=== PATIENT | female | born 1980 | race Caucasian/White ===

== ENCOUNTER 2018-08-14 21:56 | Inpatient (IN) | payer BC ==
[~2018-08-14] VITALS: Ht 182.9 cm; Wt 99.8 kg
[2018-08-14 21:58] VITALS: BP 106/79
[2018-08-14 22:39] LABS: ABSOLUTE NEUTROPHILS 8.3 thou/uL (1.4-8.2); BASOPHILS 0.3 % (0.0-2.0); HEMATOCRIT 38.7 % (37.0-47.0); HEMOGLOBIN 12.8 gm/dL (12.0-15.0); LYMPHOCYTES 11.8 % (24.0-44.0); MCH 27.6 pg (26.0-34.0); MCHC 33.1 g/dL (28.0-37.0); MCV 83.3 fL (80.0-100.0); MONOCYTES 1.8 % (1.0-8.0); PLATELET COUNT 342 thou/uL (150-400); POLYS 86.1 % (36.0-66.0); RBC 4.65 mil/uL (4.20-5.00); RDW 16.9 % (10.5-14.5); WBC 9.6 thou/uL (4.0-11.0)
[2018-08-14 22:43] LABS: CALCIUM 9.3 mg/dL (8.5-10.1); CREATININE 0.7 mg/dL (0.6-1.0); POTASSIUM 3.6 mmol/L (3.5-5.1)
[2018-08-14 22:49] LABS: ALBUMIN 4.4 g/dL (3.4-5.0); TOTAL BILIRUBIN 0.4 mg/dL (<0.1-1.0); TOTAL PROTEIN 8.7 g/dL (6.4-8.2)
[2018-08-15 01:05] LABS: URINE BILIRUBIN NEGATIVE (Negative); URINE BLOOD 1+ (Negative); URINE CLARITY CLEAR; URINE COLOR YELLOW; URINE GLUCOSE-RANDOM* NEGATIVE (Negative); URINE KETONES 3+ (Negative); URINE LEUKOCYTES-REFLEX NEGATIVE (Negative); URINE NITRITE-REFLEX NEGATIVE (Negative); URINE PROTEIN (DIPSTICK) NEGATIVE (Negative); URINE UROBILINOGEN 0.2 E.U./dl (0.2-1.0)
[2018-08-15 01:11] LABS: SQUAMOUS 4-10 Moderate /LPF (0-3); URINE WBC-REFLEX 0-5 Rare /HPF (0-5)
[2018-08-15 01:12] LABS: BACTERIA-REFLEX 1-9 Few /HPF (None Seen); CASTS None Seen /LPF (None Seen); CRYSTALS None Seen /LPF (None Seen); MUCUS 0-3 Light strn/LPF (None Seen); URINE RBC 3-10 Few /HPF (0-2)
[2018-08-15] MEDS ORDERED: PROMS25 WY RECTAL (01:29)
[2018-08-15] MEDS ORDERED: PHENERGAN 25 MG25 M1 PO (01:29)
[2018-08-15] MEDS ORDERED: ZOFRAN ODT4 MG PO (01:29)
[2018-08-15 02:25] VITALS: BP 119/75
[2018-08-15 02:54] VITALS: BP 119/75
[2018-08-15] MEDS ORDERED: WELLBUTRIN SR150 MG PO (05:10)
[2018-08-15] MEDS ORDERED: CLONAZEPAM 1 MG1 M1 PO (05:11)
[2018-08-15] MEDS ORDERED: ZONISAMIDE 100100 M1 PO (05:12)
[2018-08-15] MEDS ORDERED: OXYCODONE HCL20 M1 PO (05:20)
[2018-08-15] MEDS ORDERED: CELEXA20 MG PO (05:23)
[2018-08-15] MEDS ORDERED: RESTORIL7.5 MG PO (05:23)
[2018-08-15] MEDS ORDERED: LIDODERM1 EACH TRANSDERM (05:24)
[2018-08-15] MEDS ORDERED: NEURONTIN 300300 M1 PO (05:27)
[2018-08-15] MEDS ORDERED: MOVANTIK25 MG PO (05:29)
[2018-08-15 05:47] LABS: CALCIUM 8.4 mg/dL (8.5-10.1); CREATININE 0.7 mg/dL (0.6-1.0); POTASSIUM 3.4 mmol/L (3.5-5.1)
--- NOTE | 2018-08-15 07:36 | NUR ---
PT ARRIVED TO UNIT APPROX 0300, ABLE TO WALK FROM W/C TO BED. ADMISSION AND ASSESSMENT COMPLETED, CONSENTS SIGNED. PT C/O MID STERNAL CHEST PAIN THAT RADIATES OUTWARD AND INTO THE BACK, IS WORSE AFTER VOMITING, ALSO HAS SOME SOB WITH THE PAIN AND NAUSEA. REPORTS HER PAIN IS TOLERABLE AT A 7/10, BUT HAS BEEN UP TO A 9/10 TONIGHT. REPORTS THE NAUSEA IS WORSE THAN THE PAIN, AND CONTINUES TO DRY HEAVE; HAVE GIVEN ZOFRAN AND COMPAZINE OVERNIGHT. PT'S SPOUSE AND SERVICE DOG ARE IN THE ROOM WITH HER; PAPERS ON THE SERVICE DOG ARE LOCATED ON THE BACK OF THE CHART AND A SIGN IS POSTED ON THE DOOR OF THE ROOM. IV FLUIDS INFUSING OVERNIGHT. NO OTHER CONCERNS, SHIFT REPORT GIVEN AT 0700.
--- NOTE | 2018-08-15 08:08 | EKG ---
[address] [address] ELECTROCARDIOGRAM REPORT Name: FARAZJOSHUA PADILLA DASH Room #: 423-1 ADM IN M.R.#: [id number] ������������������ Admission: 08/15/18 ������������������ Attend Phys: Suresh Rousseau MD Discharge: ������������������ Date of : 80 Report #: [id number] ����������������������������������������������������������������� [id number] THIS REPORT FOR: //name// [facility] ED Test Date: 2018-08-14 Test Time: 21:57:21 Pat Name: JOSHUA LANGFORD Department: Room: [facility] Gender: F Help Desk Intern: As : 1980 Requested By: Jayy Wiggins Order Number: [id number] MD: Feroz Matias Measurements Intervals Mentor Rate: 71 P: 45 IL: 175 QRS: 43 QRSD: 102 T: 67 QT: 395 QTc: 430 Interpretive Statements Sinus arrhythmia Borderline T wave abnormalities Baseline wander in lead(s) III No previous ECG available for comparison Electronically Signed On 08-15-2018 8:08:16 CDT by Feroz Matias [email or web address] ��������������������������������������������� <ELECTRONICALLY SIGNED> ���������������������������������������� By: Feroz Matias MD ��������������������������������������������� 08/15/1808 56 56 Feroz Matias MD /JESS
[2018-08-15 08:34] VITALS: BP 124/65
--- NOTE | 2018-08-15 08:57 | NUR ---
ASSESMENT COMPLETED. VSS. A/O. C/O PAIN AND NAUSEA MANAGED BY MEDS ORDERED. NO NOTED SOA. UP AD ELANA. PT RESTING IN BED AT THIS TIME. FAMILY AT BEDSIDE. WILL CONT. TO MONITOR.
--- NOTE | 2018-08-15 09:37 | NUR ---
Pt newly admitted this am for intractable n/v. High nutrition risk trigger for unintentional wt loss 14-23 lb, decreased oral intake with constipation. On IVF, GI consult pending. NPO status. Will follow up in few days for timely diet advance, tolerance.
[2018-08-15 13:54] VITALS: BP 102/66
--- NOTE | 2018-08-15 16:14 | NUR ---
INITIAL ASSESSMENT: Pt evaluated for d/c planning needs. Reviewed chart and spoke with nurse and pt. Pt is alert and oriented. Pt lives at home with and was independent with ADL's prior to admission to the hospital. Pt has cane at home and has not had home health in the past. Pt plans on returning home on d/c from hospital. Will remain available to assist as needed.
[2018-08-15 16:29] VITALS: BP 129/66
[2018-08-15 19:12] VITALS: BP 117/65
[2018-08-16 04:11] VITALS: BP 135/81
--- NOTE | 2018-08-16 05:59 | NUR ---
ASSUMED CARE AT 1900, ASSESSMENT COMPLETED. PT MILDLY ANXIOUS WITH MODERATE NAUSEA BUT DENIES NEEDING NAUSEA MEDS OVERNIGHT. PRIMARY COMPLAINT IS PAIN IN HER RIGHT FOOT, STERNAL CHEST, AND IN HER RIGHT ARM; GAVE SCHEDULED OXY AND PRN CLONAZAPAM AND ATIVAN OVERNIGHT. DISCUSSED PLANS FOR PIPPIDA AND ABD US TODAY, THAT SHE WOULD BE NPO AFTER MIDNIGHT AND UNABLE TO TAKE ANY NARCOTIC MEDS--PT STATES SHE UNDERSTANDS. PT TOOK SHOWER AT HS. REPORTS SLEEPING POORLY, WAS FRUSTRATED AT BEING WOKEN UP FOR LABS THIS AM; AFTERWORD TALKED WITH PT AND AGREED TO LABS BE HELD UNTIL AROUND 0800. ALSO PLACED SIGN ON DOOR ASKING STAFF TO CHECK IN WITH THE NURSE BEFORE ENTERING THE ROOM IN CASE PT IS TRYING TO REST. PT'S AND SERVICE DOG PRESENT IN ROOM. NO OTHER CONCERNS, WILL CONTINUE TO MONITOR.
[2018-08-16 07:30] VITALS: BP 127/86
--- NOTE | 2018-08-16 08:46 | NUR ---
ASSESMENT COMPLETED. VSS. A/O/VERY ANXIOUS. C/O PAIN. NO NOTED NV. NO NOTED FELICITY. UP AD ELANA. AND DOG AT BEDSIDE. WANTING TO GET TEST DONE THIS AM. PT DOWN IN NUC MED AT THIS TIME.
--- NOTE | 2018-08-16 12:33 | NUR ---
RECEIVED BACK FROM [facility] APPROX 1045. TEARFUL. PAIN MEDS GIVEN ORDERED. HEATING PAD ORDERED. NOTED PT WATCHING TV ABLE TO CONVERSE AND LAUGH BUT STILL EXPRESSES SIGNIFICANT PAIN. NEW IV STARTED IN LEFT FOREARM RIGHT AC IV IS UNCOMFORTABLE. PT REQUESTING TO NAP FOR ATLEAST A COUPLE HOURS. WILL CONT. TO MONITOR.
[2018-08-16 16:00] VITALS: BP 157/69
--- NOTE | 2018-08-16 17:07 | PATH ---
[facility] [place] [address] [place] [address] PATHOLOGY RPT PROCEDURE Name: PEGGY LANGFORD Room #: 418-P ADM IN M.R.#: [id number] ������������������ Admission: 08/15/18 ������������������ Date of : 80 Discharge: Report #: [id number] Path Case #: [id number] L[facility] Accession Number: [id number] . 01 Material submitted: . PART A: BX OF ANTRUM PART B: ESOPHAGEAL BX . 01 Clinical history: . N/V A. R/O gastritis B. R/O eosinophilic esophagitis . 02 Diagnosis: A. Gastric mucosa, antrum, endoscopic biopsy: - Mild chronic gastritis with features of reactive gastropathy. - Negative for intestinal metaplasia or atrophy. - Negative for Helicobacter pylori (properly controlled immunohistochemical stain performed). . B. Gastroesophageal mucosa, esophagus rule out eosinophilic esophagitis, endoscopic biopsy: - Squamous mucosa showing mild active esophagitis with approximately 2 to 3 eosinophils/high power field. - Gastric cardia-type mucosa with acute inflammation. - Negative for intestinal metaplasia or dysplasia. - Negative for eosinophilic esophagitis. LBQ/08/16/2018 . 02 Comment: A GMS fungal special stain is ordered on block B and the results of this will be reported in an addendum to follow. (IUV/db; 08/16/2018) . 02 Electronically signed: . Nisha Dick MD, Pathologist NPI- [id number] . 01 Gross description: . A. The specimen is received in formalin, labeled "Peggy Langford, biopsy of antrum to R/O gastritis". Received is a segment of pale dejesus soft tissue measuring 0.8 cm in maximum dimensions. The specimen is submitted entirely in cassette A1. . B. The specimen is received in formalin, labeled "Peggy Langford, esophageal biopsy to R/O EOE". Received is a segment of pale dejesus soft tissue measuring 0.4 cm in maximum dimensions. [place] [address] PATHOLOGY RPT PROCEDURE Name: PEGGY LANGFORD Room #: 418-P [facility] IN M.R.#: [id number] ������������������ Admission: 08/15/18 ������������������ Date of : 80 Discharge: Report #: [id number] Path Case #: [id number] entirely in cassette B1. (CAA; 08/15/2018) QAC/QAC . 02 Pathologist provided ICD-10: K29.50, K20.0 . 02 CPT . 666555, 049032, G48175 Specimen Comment: A courtesy copy of this report has been sent to Specimen Comment: [phone], . Specimen Comment: Report sent to / DR TONEY Performed at: [address] [facility], [place], [place] [id number] MD Rahul Chappell MD Phone: [phone] Performed at: [address] [facility] [id number] MD Nisha Dick MD Phone: [phone]
[2018-08-16 17:39] LABS: HEMATOCRIT 30.1 % (37.0-47.0); MCH 28.2 pg (26.0-34.0); MCHC 33.2 g/dL (28.0-37.0); MCV 84.9 fL (80.0-100.0); RBC 3.54 mil/uL (4.20-5.00); RDW 16.7 % (10.5-14.5); WBC 6.2 thou/uL (4.0-11.0)
[2018-08-16 17:43] LABS: CREATININE 0.6 mg/dL (0.6-1.0); POTASSIUM 2.7 mmol/L (3.5-5.1)
[2018-08-16 20:01] VITALS: BP 149/78
--- NOTE | 2018-08-17 03:20 | NUR ---
ASSESSMENT COMPLETED. PT IS UP AD ELANA. STILL C/O LUQ. NO NAUSEA THIS SHIFT. CHRONIC R FOOT PAIN, LIDOCAINE APPLIED WITH RELIEF. AFEBRILE. PROBLEM SLEEPING TONIGHT. GIVEN SLEEP AIDE WITH POOR RESULTS, BENADRYL JUST GIVEN PER PT REQUEST-HOPEFULLY IT WILL HELP.SERVICE DOG AND SPOUSE BY BEDSIDE. SOME ELEMENT OF ANXIETY BUT SHE HAS BEEN SMILING AND VERY COOPERATIVE.
[2018-08-17 05:48] VITALS: BP 121/67
[2018-08-17 07:46] VITALS: BP 136/76
[2018-08-17 18:31] VITALS: BP 120/85
[2018-08-17 21:00] VITALS: BP 148/98
--- NOTE | 2018-08-18 01:34 | NUR ---
ASSUMED PT CARE AT AROUND 1915 HRS.PT FRUSTRATED AND COMPLAINING ABOUT FEELING WORSE. PT WAS C/O THAT MIRALAX GIVEN IN THE DAY MADE HER FEEL WORSE. PT REPORTS EMESIS. ORDERS RECEIVED FOR ONE TIME TORADOL AND COMPAZINE WAS ALSO GIVEN. PT NOT HAPPY ABOUT THE TORADOL ORDER. FELT LIKE IT WAS NOT GOING TO HELP HER. PT C/O ABOUT THE METABOLIC SPECIALIST , THE DAY SHIFT RN, DIETARY ETC. THERAPEUTIC EAR PROVIDED. PT WAS AT ONE TIME PACKED UP AND READY TO LEAVE AMA. THIS NURSE REMINDED HER THAT LEAVING AMA MIGHT INTERFERE WITH INSURANCE PAYING FOR HER CARE-PT DECIDED TO STAY. PT IS EXTREMELY ANXIOUS. ANXIETY AND PAIN MEDS GIVEN PER SCHEDULE. PT IS AFEBRILE. WILL CONTINUE WITH POC TILL EOS.
[2018-08-18 07:31] LABS: HEMATOCRIT 30.4 % (37.0-47.0); MCH 27.7 pg (26.0-34.0); MCHC 32.8 g/dL (28.0-37.0); MCV 84.6 fL (80.0-100.0); RBC 3.59 mil/uL (4.20-5.00); RDW 16.8 % (10.5-14.5); WBC 4.3 thou/uL (4.0-11.0)
[2018-08-18 07:52] LABS: ALBUMIN 3.1 g/dL (3.4-5.0); CALCIUM 7.8 mg/dL (8.5-10.1); CREATININE 0.6 mg/dL (0.6-1.0); TOTAL BILIRUBIN 0.4 mg/dL (<0.1-1.0)
[2018-08-18 07:58] LABS: POTASSIUM 2.8 mmol/L (3.5-5.1)
--- NOTE | 2018-08-18 08:03 | NUR ---
ASSUMED CARE OF PT AT 0700. ASSESSMENT COMPLETED. A&O,X4. HX ANXIETY, ANXIOUS AT TIMES, ANTIANXIETY GIVEN ORDERED. C/O CHRONIC PAIN AND ABD PIAN, PAIN MEDS GIVEN ORDERED. SOME NAUSEA NOTED, MEDS GIVEN ORDERED, NO VOMITING. ROOM AIR, CLEAR LUNG SOUNDS, NO SOA. REGULAR HEART SOUNDS. ACTIVE BOWEL SOUNDS, LBM 3/12. SKIN INTACT. AND THERAPY DOG AT BEDSIDE. POTENTIAL D/C HOME TODAY. WILL CONTINUE TO MONITOR.
[2018-08-18] MEDS ORDERED: PROTONIX40 M1 PO (13:25)
[2018-08-18] MEDS ORDERED: CARAFATE 11 GM/10 M1 PO (13:25)
[2018-08-18] MEDS ORDERED: MIRALAX17 GM PO (13:25)
--- NOTE | 2018-08-18 15:06 | NUR ---
PT EXPRESSES CONCERNS ABOUT HOSPITAL STAY AND NOT READY TO DISCHARGE. PT REQUESTED TO SEE DR. COOMBS AND DR. FIORE. PHYSICIANS NOTIFIED. PHYSICIANS UNABLE TO SEE PT IN PERSON FOR NON-EMERGENT CASES TODAY. BOTH PHYSICIANS STATE SHE IS OKAY TO GO HOME FROM [facility]. PT IS UPSET ABOUT THE SITUATION.
--- NOTE | 2018-08-18 15:52 | NUR ---
HOSPITALIST CHANGED FROM DR. TONEY TO DR. GARDNER. DR. GARDNER TO SEE PATIENT AND SIGNIFICANT OTHER AT BEDSIDE. PATIENT AND S.O. DISAGREED WITH DR. GARDNER'S SECOND OPINION.
--- NOTE | 2018-08-18 16:37 | NUR ---
LAB CALLED CRITICAL POTASSIUM 2.9. FOLLOWING POTASSIUM PROTOCOL ORDER. PHYSICIAN NOTIFIED.
[2018-08-18 16:46] VITALS: BP 148/98
--- NOTE | 2018-08-18 17:58 | NUR ---
DR. GARDNER DISCONTINUED STANDING DISCHARGE ORDERS BY DR. TONEY DUE TO PATIENT'S LOW POTASSIUM AND UNRELIEVED SYMPTOMS OF N/V. NEW IV FLUID ORDERS. WILL CONTINUE POTASSIUM PROTOCOL. NEW NAUSEA MED ORDER, WILL GIVE ORDERED. DR. GARDNER SPOKE BY TELEPHONE TO THE PATIENT. PATIENT WILL BE STAYING THE WEEKEND AND PLAN FOR FURTHER TESTING ON MONDAY.
[2018-08-18 19:30] VITALS: BP 153/116
--- NOTE | 2018-08-19 05:38 | NUR ---
PT AMBULATING IN ROOM INDEPENDENTLY AND IS TOLERATING WELL. OXY IR PROVIDING PAIN RELIEF. COMPAZINE PROVIDING NAUSEA RELIEF. RESTING COMFORTABLY. NO NEEDS VOICED. CALL LIGHT WITHIN REACH. WILL CONTINUE TO PROVIDE FREQUENT OBSERVATION.
[2018-08-19 08:39] VITALS: BP 153/97
--- NOTE | 2018-08-19 09:19 | NUR ---
ASSESMENT COMPLETED. VSS. C/O PAIN AND NAUSEA. MEDS GIVEN ORDERED. SPENT ATLEAST 40 MINUTES DISCUSSING POC WITH PATIENT THIS AM. PT VERY ANXIOUS/TEARFUL. HAD COMPLAINS ABOUT HOSPITAL STAFF. REASSURANCE GIVEN. PT RESTING IN BED AT THIS TIME. AT BEDSIDE. WILL CONT. TO MONITOR.
[2018-08-19 12:22] LABS: MAGNESIUM 2.1 mg/dL (1.8-2.4); POTASSIUM 3.2 mmol/L (3.5-5.1)
--- NOTE | 2018-08-19 12:23 | NUR ---
SUPPOSITORY GIVEN ORDERED. PT VERY ANXIOUS. PT TRYING TO HAVE BM AT THIS TIME. WILL CONT. TO MONITOR.
--- NOTE | 2018-08-19 16:09 | NUR ---
PT ATE SOME PUDDING AND DID OK PER PATIENT REPORT.
--- NOTE | 2018-08-19 16:10 | NUR ---
PT C/O SEVERE PAIN/CRAMPING AFTER ENEMA AND SUPPOSITORY- NO RESULTS. REQUESTED ENEMA AT TIME WHEN NEXT PAIN AND ANXIETY MED DUE.
[2018-08-19 16:45] VITALS: BP 128/75
[2018-08-19 20:41] VITALS: BP 138/80
[2018-08-20 05:34] VITALS: BP 106/66
--- NOTE | 2018-08-20 07:43 | NUR ---
VERY ANXIOUS, GIVEN PRN KLONOPIN, LOTS OF EMOTIONAL SUPPORT. SCHEDULED OXYCODONE Q6HRS, DID REQUIRE X 1 IV TORADOL. INCREASED PAIN TONIGHT REPORTED SINCE HAS INCREASED ABD DISTENTION. NO RESULTS FROM ENEMAS GIVEN. REFUSING IVF, HAS AVERSION TO HAVING IVF INFUSING WITH ANY AMOUNT OF POTASSIUM IN IT. AM POTASSIUM LEVEL BEING DRAWN WHILE WRITING THIS NOTE.
[2018-08-20 08:17] LABS: POTASSIUM 3.5 mmol/L (3.5-5.1)
[2018-08-20 08:32] VITALS: BP 143/92
[2018-08-20 10:08] LABS: HEMATOCRIT 34.1 % (37.0-47.0); HEMOGLOBIN 11.2 gm/dL (12.0-15.0); MCH 28.1 pg (26.0-34.0); MCHC 32.9 g/dL (28.0-37.0); MCV 85.3 fL (80.0-100.0); RBC 3.99 mil/uL (4.20-5.00); RDW 17.3 % (10.5-14.5); WBC 4.2 thou/uL (4.0-11.0)
[2018-08-20 10:13] LABS: CALCIUM 8.7 mg/dL (8.5-10.1); CREATININE 0.6 mg/dL (0.6-1.0); MAGNESIUM 2.1 mg/dL (1.8-2.4)
--- NOTE | 2018-08-20 11:45 | NUR ---
Nutrition follow-up: Pt continues to have nausea and abdominal pain. Is on clear liquid diet, but is drinking only small amounts. Pt reports 30 lb wt loss since April. She is interested in possible outpatient nutrition education. Will follow for diet advancement. Possible d/c in the next few days.
[2018-08-20 17:18] VITALS: BP 127/61
--- NOTE | 2018-08-20 19:47 | NUR ---
ASSUMED CARE THIS AM, SHIFT ASSESSMENT DONE, MEDS GIVEN SCHEDUELD. PATIENET REPORTED PAIN, SCHEDULED PAIN MEDS GIVEN. REPORTED NAUSEA, NAUSEA MEDS GIVEN, SEE eMAR. DR GARDNER ORDERED BMP, CBC. LABS CAME BACK AND INIDCATED PATIENT WAS NOT DEHYDRATED. SO DR GARDNER INDICATED TO DISCONTINUE IV FLUIDS. DR GARDNER SAID PATIENT CAN BE DISCHARGED IF KUB IS CLEAN. KUB OF ABDOEMEN ORDERED, KUB SHOWED RETAINED STOOL. DR GARDNER WAS NOTIFIED, ONE TIME DOSE OF MAGNESIUM CITRATE WAS ORDERED. PATIENT ASKED FOR LORAZEPAM SO THAT SHE CAN TOLEARATE IT WELL. DR GARDNER NOTIFIED AND ONE TIME ORDER OF LORAZEPAM GIVEN. MAGNESIUM CITRATE WAS GIVEN AT 1730. PATINET REPROTED NAUSEA AT 1800, PRN ZOFRAN GIVEN. PATIENT THREW UP ONCE, 50 ML OF LIQUID. AWAITING FOR A BM. DR GARDNER INDICATED IF PATIENT HAS A BM THEN SHE CAN BE DISCHARGED. WILL CONTINUE TO ASSES AND ASSIST WITH ADLs NEEDED.
--- NOTE | 2018-08-20 20:07 | NUR ---
PATIENT ALSO REPORTED UNWITNESSED WHITE-YELLOW DISCHARGE. DR GARDNER AWARE, DR ACHARYA WAS CONSULTED. DR ACHARYA CALLED BACK AND INDICATED HE IS OUT OF TOWN WILL SEE THE PATIENT MONDAY.
[2018-08-20 20:35] VITALS: BP 123/83
[2018-08-21 06:49] VITALS: BP 115/72
[2018-08-21] MEDS ORDERED: COMPAZINE10 MG PO (09:28)
--- NOTE | 2018-08-21 09:37 | NUR ---
Assumed pt care at 7am.Assessment completed.vss.Pt c/o nausea and requested for compazine. Pharmacy notified and med given upon arrival.Pt requested for Dr gilmore to be paged nate and wanted to dc home this morning.Dr Gilmore rounded on pt and dc order noted.Saline lock dc'd. Dc summary complied and reviewed with pt and spouse.Consult to Dr Tierney cancelled.Pt will be dc home before noon. Will continue to monitor.
[2018-08-21 09:45] VITALS: BP 148/98
== END 2018-08-21 10:29 | disposition home or self-care (01) | DRG 392 ==
LOC: ER 21:56 → 4E 08-15 01:50 → EROBS 08-15 01:50 → 4E 08-15 02:54 → ENTRNSPT 08-21 09:58 → EDTRNSPTSTS 08-21 10:00 → 4E 08-21 10:29
PROVIDERS: Emergency Medicine; Internal Medicine; Nurse Practitioner Family; Surgery; ADMIT Hospitalist
DX: K29.60 Other gastritis without bleeding (principal); G90.50 Complex regional pain syndrome I, unspecified; K56.7 Ileus, unspecified; K29.80 Duodenitis without bleeding; K59.03 Drug induced constipation; K20.9 Esophagitis, unspecified; F41.9 Anxiety disorder, unspecified; F43.10 Post-traumatic stress disorder, unspecified; G89.4 Chronic pain syndrome; T40.2X5A Adverse effect of other opioids, initial encounter; Z79.899 Other long term (current) drug therapy; Y92.89 Other specified places as the place of occurrence of the external cause
CPT/HCPCS: 10783; 62110; 62900